=== PATIENT | male | born 1955 ===

== ENCOUNTER 2020-02-02 21:24 | Emergency (ER) | payer OTHER, SELFPAY ==
[2020-02-02 21:30] VITALS: BP 194/95; PULSE 91; RESP 16; TEMP 36.6; O2SAT 97; BMI 26.4
--- NOTE | 2020-02-02 22:04 | DI.RAD.S_ITS ---
PROCEDURE: XR KNEE LT 3V INDICATIONS: felt pop/pain TECHNIQUE: 3 views of the knee were acquired. COMPARISON: None. FINDINGS: Bones: No fractures or dislocations. No suspicious bony lesions. Scattered degenerative subchondral sclerosis and spurring. Soft tissues: Small joint effusion. No suspicious soft tissue calcifications. IMPRESSION: Mild joint degeneration. Small joint effusion. If the patient's pain or other symptoms persist, consider further evaluation with MRI Dictated by: Slick Hong M.D. on 02/03/2020 at 8:12 Approved by: Slick oHng M.D. on 02/03/2020 at 8:17
--- NOTE | 2020-02-02 22:08 | ED_ITS ---
HPI - Extremity Injury (Lower) General Chief Complaint: Extremity Injury, Lower Stated Complaint: Left Knee Gave Out Time Seen by Provider: 02/02/20 22:02 Source: patient and family Mode of arrival: Ambulatory Limitations: no limitations History of Present Illness HPI Narrative: 64-year-old male here for evaluation of left knee injury. Patient was at work on the [employer] when he states that he was bending over and f elt a ?pop? in his left knee. Since then has had pain specifically with standing. Has a very difficult time walking because of the pain. Has not tried anything for symptoms prior to arrival. He does not remember the exact position he was in when he felt the symptoms. No prior injury to his left knee. No other injuries reported from the event Related Data Home Medications Medication Instructions Recorded Confirmed atenolol 25 mg PO QDAY #0 03/23/13 Review of Systems Constitutional Constitutional: Denies fever(s) Musculoskeletal Comments: Left knee pain Integumentary/Breasts Skin/Breast: Denies lesions and Denies rash Neurologic Neurologic: Denies behavioral changes Psychiatric Psychiatric: Denies behavioral changes Hematologic/Lymphatic Hematologic/Lymphatic: Denies easy bleeding and Denies easy bruising Allergic/Immunologic Allergic/Immunologic: Denies urticaria Patient History Medical History Patient denies medical problems (Acute) Social History Smoking Status: Never smoker Smoking Status: Never smoker alcohol intake frequency: 0-2 drinks per day Substance Use Type: does not use Exam Initial Vital Signs Initial Vital Signs: Vital Signs Temperature 97.8 F 02/02/20 21:30 Pulse Rate 91 H 02/02/20 21:30 Respiratory Rate 16 02/02/20 21:30 Blood Pressure 194/95 H 02/02/20 21:30 Pulse Oximetry 97 02/02/20 21:30 Const General: cooperative, healthy appearing and comfortable Resp Effort & Inspection: normal respiratory effort Skin Lesions: no lesions Rashes: no rashes Neuro General: alert and awake Extrem Other: Left hip unremarkable, left ankle unremarkable, patient with minimal tenderness to palpation throughout the left knee. ACL MCL PCL and LCL all intact functional testing. Patient able to do a straight leg raise. No tenderness palpation over the patella tendon other quadriceps tendon. Patient states that the discomfort he is having is ?on the inside ? Psych Appearance: grossly normal and well kempt Course Orders Ordered: ED Orders 02/02/20 22:04 XR knee LT 3V Stat Vital Signs Vital signs: Vital Signs - 8 hr 02/02/20 21:30 Temperature 97.8 F Pulse Rate 91 H Respiratory Rate 16 Blood Pressure 194/95 H Pulse Oximetry 97 MDM - Extremity Injury (Lower) Imaging Data Extremity x-ray #1: Attestation: I personally reviewed and interpreted this imaging study as follows: My Impression: No fractures or dislocations MDM Narrative Medical decision making narrative: Patient is neurovascularly intact. No objective findings on his exam. X-rays negative for fracture. I do suspect that this is either knee sprain and/or potentially a meniscal injury that is just not able to be reproduced. Informed the patient that he should elevate his leg for the next couple days. Unfortunately his job prohibits this as he works on the [employer] system and goes up and down stairs and walks and stands for most of his work. I did give him a note for the next 2 days off of work. He then has 4 days off of work after that. He will follow-up with his primary provider for his symptoms do not improve. He was given crutches for comfort. Is given an Ulises bandage for comfort. The Ulises bandage was not placed while he was here in the ER. Discharge Plan Departure Patient Disposition: Home Clinical Impression: Left knee sprain Qualifiers: Encounter type: initial encounter Involved ligament of knee: unspecified ligament Qualified Code(s): S83.92XA - Sprain of unspecified site of left knee, initial encounter Discharge Date/Time: 02/02/20 23:08 Instructions: DI for Knee Sprain, How To Perform RICE (Rest, Ice, Compress, Elevate), How to Apply an Elastic Wrap on Knee Activity Restrictions/Additional Instructions: Recommend that for the next 24-48 hours you do ice here knee and keep it elevated. After that you can ambulate as tolerated. There is no medical indication for any drug or alcohol testing during this visit. Recommend you contact your primary provider for follow-up especially after the next 5-7 days if you are still having pain. You can take Tylenol and/or ibuprofen for any discomfort Prescriptions: No Action atenolol 25 MG tablet 25 mg PO QDAY Qty: 0 RF: 0 Referrals: Jose Guadalupe Atwood [Primary Care Provider] - Stand Alone Forms: Work Release Note
== END 2020-02-02 23:08 | disposition home or self-care (01) ==
PROVIDERS: Emergency Provider Emergency Medicine; PCP Family Medicine
DX: S83.92XA Sprain of unspecified site of left knee, initial encounter (principal); Y99.0 Civilian activity done for income or pay
CPT/HCPCS: 73562; 99283